=== PATIENT | male | born 1945 | race Caucasian/White ===

== ENCOUNTER 2021-02-02 02:58 | Inpatient (IN) | payer MEDICARE, SELFPAY ==
[2021-02-02] VITALS (15 sets, daily range): BP systolic 74–191; BP diastolic 49–125; PULSE 82–123; RESP 14–24; TEMP 36.4–36.7; O2SAT 97–101; BMI 27.4; BMI 28.4
--- NOTE | ~2021-02-02 | XR_ITS ---
EXAMINATION: XR CHEST CLINICAL INFORMATION: Shortness of breath COMPARISON: 08/13/2016 TECHNIQUE: Frontal view of the chest was obtained. FINDINGS: Lung volumes are symmetric. No focal consolidation is seen. No evidence of pneumothorax, pleural effusion, or pulmonary edema. Cardiac size is within normal limits. Calcification is present at the aortic arch. No acute osseous findings are seen. XR/XR chest 1V IMPRESSION: No acute cardiopulmonary findings.
--- NOTE | 2021-02-02 03:13 | ECG_ITS ---
Test Reason : HYPOTENSION Blood Pressure : / mmHG Vent. Rate : 083 BPM Atrial Rate : 065 BPM P-R Int : 000 ms QRS Dur : 102 ms QT Int : 426 ms P-R-T Axes : 000 046 -19 degrees QTc Int : 500 ms Atrial fibrillation Cannot rule out Inferior infarct , age undetermined Prolonged QT Abnormal ECG When compared with ECG of 02-FEB-2021 03:12, Minimal criteria for Inferior infarct are now Present Nonspecific T wave abnormality now evident in Inferior leads T wave amplitude has decreased in Lateral leads QT has lengthened Referred By: Melissa Chin Electronically Signed By:ANGEL LUIS ORTEGA
[2021-02-02] MEDS: Metoprolol Tartrate 5 MG/5 ML VIAL IVPUSH (03:25)
[2021-02-02 03:32] LABS: Basophils Absolute Auto 0.2 X10*3/uL (0.0-0.2); Eosinophils Absolute Auto 1.1 X10*3/uL (0.0-0.4); Eosinophils Percent Auto 7.3 % (0-4); Hematocrit 50.7 % (42-52); Hemoglobin 18.1 g/dl (14.0-18.0); Imm Gran Abs Auto 0.07 X10*3/uL (0.00-0.03); Imm Gran Pct Auto 0.5 % (0.0-0.4); Lymphocytes Percent Auto 20.5 % (20-40); MANUAL DIFF FLAG NO; Mean Corpuscular HGB Conc 35.7 g/dl (31.0-36.0); Mean Corpuscular Hemoglobin 31.3 pg (27.0-33.0); Mean Corpuscular Volume 87.7 fL (80-98); Mean Platelet Volume 10.2 fL (9.4-12.4); Monocytes Absolute Auto 1.2 X10*3/uL (0.1-1.2); Monocytes Percent Auto 8.4 % (2-11); Neutrophils Absolute Auto 9.2 X10*3/uL (2.0-8.3); Neutrophils Percent Auto 62.3 % (45-73); Platelet Count 249 X10*3/uL (160-400); Red Blood Count 5.78 X10*6/uL (4.60-5.80); Red Cell Distribution Width 12.2 % (11.0-16.0); White Blood Count 14.7 X10*3/uL (4.8-10.8)
[2021-02-02 03:36] LABS: Venous Blood Gas Refer to POC result
[2021-02-02 03:37] LABS: VBG HCO3 25 mmol/L (22-26); VBG pCO2 58 mmHg; VBG pH 7.25 (7.32-7.43); VBG pO2 66 mmHg
[2021-02-02 03:40] LABS: INTERNATIONAL NORM RATIO 1.1 (0.9-1.1); Prothrombin Time 12.1 SEC (9.9-13.0)
[2021-02-02 03:47] LABS: Alanine Aminotransferase 27 U/L (0-40); Albumin Level 4.8 g/dL (3.5-5.0); Alkaline Phosphatase 91 U/L (39-117); Anion Gap 18 (12-20); Aspartate Amino Transferase 37 U/L (5-37); Bilirubin Total 2.2 mg/dL (0.0-1.0); Blood Urea Nitrogen 7 mg/dL (9-16); Carbon Dioxide 24 mmol/L (22-29); Chloride 92 mmol/L (96-108); Creatinine Clr Calc Pharmacy 67.2; Estimated Glomerular Filt Rate > 60; Glucose Random 198 mg/dL (60-115); Potassium 4.2 mmol/L (3.3-5.1); Sodium 130 mmol/L (135-145); Total Protein 8.1 g/dL (6.5-8.0)
--- NOTE | 2021-02-02 03:47 | ED_ITS ---
HPI - SOB/Dyspnea General Chief Complaint: Dyspnea Stated Complaint: SOB X1WEEK WORSENING, RHONCI, FEVER Time Seen by Provider: 02/02/21 03:13 Source: patient Mode of arrival: EMS History of Present Illness HPI Narrative: 75-year-old male with history of CABG presents via EMS with 1 week of worsening shortness of breath that became acutely worsening this evening and denies any chest pain/palpitations, abdominal pain. Related Data Allergies Allergy/AdvReac Type Severity Reaction Status Date / Time Penicillins [PENICILLINS] Allergy Unknown RASH Verified 02/02/21 03:17 Review of Systems Review of Systems: Pertinent positives and negatives as stated in HPI 10 point review of systems is otherwise negative. [facility] Past Medical History Source: nursing notes reviewed Social History Social History Advance Directives: No Physical Exam Vital Signs: Vital Signs: Last Vital Signs Pulse 83 02/02/21 07:13 Resp 22 H 02/02/21 07:56 BP 102/69 02/02/21 05:05 Pulse Ox 99 02/02/21 07:13 Body Mass Index 27.4 VITAL SIGNS: Reviewed. GENERAL: Chronically ill, acute distress HEAD: Normocephalic/atraumatic EYES: PERRLA, EOMI OROPHARYNX: no oral lesions noted, posterior pharynx clear LUNGS: Respiratory distress, tachypnea, unable to speak in full sentences, expiratory wheeze with rales. SpO2<100> 100% non-rebreather CARDIOVASCULAR: Regular rate and rhythm without noted murmurs, no JVD or lower extremity edema. ABDOMEN: Soft, non-tender, non-distended with bowel sounds. MUSCULOSKELETAL: No tenderness, deformities, or effusions noted on gross in spection. EXTREMITIES: No cyanosis, clubbing or edema. SKIN: Inspection of the skin reveals no rashes, but diaphoretic NEUROLOGIC: Alert and oriented x 4. Strength and sensation to light touch were g rossly intact x 4. Course Course Course Narrative: 75-year-old male with acute respiratory distress although oxygenating well on 100% non-rebreather unable to speak in complete sentences and placed on BiPAP, given a Xopenex and provided 5 mg of Lopressor for atrial fibrillation RVR. Patient denies any respiratory issues previously and so somewhat of a mixed picture although preliminary bedside echo shows B-lines suggesting CHF exacerbation. Patient improved clinically and heart rate improved. Patient then became hypotensive but was mentating well and continuing to deny any chest pain. Although review of all investigations shows a leukocytosis this is felt to be stress response as there is no noted infiltrate on chest x-ray and the abdominal exam is benign and no urinary symptoms. The noted troponin rise thought to be secondary to flash pulmonary edema from atrial fibrillation with RVR leading to ischemia further exacerbated by hypotension. 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 Reevaluation(s) Reevaluation #1: I discussed the case with Dr. Sam who recommends no further IV fluids, keep BiPAP in place and admit. Time: 05:40 Reevaluation #2: I discussed the case with , the wash test checker who recommends that patient be given a trial off of the BiPAP and if he does well he can be admitted [place] [facility] Reevaluation #3: I communicated with Dr. Sam all of the updates and additional findings. MDM - SOB/Dyspnea Lab Data Result diagrams: 02/02/21 03:23 02/02/21 03:23 Labs: Lab Results 02/02/21 02/02/21 02/02/21 Range/Units 03:23 03:23 03:23 WBC 14.7 H (4.8-10.8) X10*3/uL RBC 5.78 (4.60-5.80) X10*6/uL Hgb 18.1 H (14.0-18.0) g/dl Hct 50.7 (42-52) % MCV 87.7 (80-98) fL MCH 31.3 (27.0-33.0) pg MCHC 35.7 (31.0-36.0) g/dl RDW 12.2 (11.0-16.0) % Plt Count 249 (160-400) X10*3/uL MPV 10.2 (9.4-12.4) fL Immature Gran % (Auto) 0.5 H (0.0-0.4) % Neut % (Auto) 62.3 (45-73) % Lymph % (Auto) 20.5 (20-40) % [place] % (Auto) 8.4 (2-11) % Eos % (Auto) 7.3 H (0-4) % Baso % (Auto) 1.0 (0-2) % Lymph # (Auto) 3.0 (1.2-4.9) X10*3/uL [place] # (Auto) 1.2 (0.1-1.2) X10*3/uL Eos # (Auto) 1.1 H (0.0-0.4) X10*3/uL Baso # (Auto) 0.2 (0.0-0.2) X10*3/uL Abs Immat Gran (auto) 0.07 H (0.00-0.03) X10*3/uL Absolute Neuts (auto) 9.2 H (2.0-8.3) X10*3/uL Absolute Nucleated RBC 0.000 (0.0-0.012) X10*3/uL Nucleated RBC % (auto) 0.0 (0.0-0.2) /100WBC PT 12.1 (9.9-13.0) SEC INR 1.1 (0.9-1.1) O2 Saturation % ABG pH at Pt Temp (7.35-7.45) ABG pCO2 at Pt Temp (32-45) mmHg ABG pO2 at Pt Temp (83-108) mmHg ABG HCO3 (22-26) mmol/L ABG Base Excess (Actual) mmol/L VBG pH (7.32-7.43) VBG pCO2 mmHg VBG pO2 mmHg VBG HCO3 (22-26) mmol/L VBG O2 Saturation % VBG Base Excess mmol/L Sodium 130 L (135-145) mmol/L Potassium 4.2 (3.3-5.1) mmol/L Chloride 92 L (96-108) mmol/L Carbon Dioxide 24 (22-29) mmol/L Anion Gap 18 (12-20) BUN 7 L (9-16) mg/dL Creatinine 0.98 (0.5-1.4) mg/dL Estim Creat Clear Calc 67.2 Estimated GFR > 60 Random Glucose 198 H (60-115) mg/dL Lactic Acid (0.5-2.0) mmol/L Lactic Acid Fup @ 2Hr (0.5-2.0) mmol/L Calcium 10.0 (8.4-10.2) mg/dL Magnesium 1.7 (1.6-2.6) mg/dL Total Bilirubin 2.2 H (0.0-1.0) mg/dL AST 37 (5-37) U/L ALT 27 (0-40) U/L Alkaline Phosphatase 91 (39-117) U/L Troponin I High Sens (<3.5-35.0) ng/L B-Natriuretic Peptide (<100) pg/mL Total Protein 8.1 H (6.5-8.0) g/dL Albumin 4.8 (3.5-5.0) g/dL COVID-19 (AUTUMN) (Negative) COVID-19 Clin Com 02/02/21 02/02/21 02/02/21 Range/Units 03:23 03:23 03:25 WBC (4.8-10.8) X10*3/uL RBC (4.60-5.80) X10*6/uL Hgb (14.0-18.0) g/dl Hct (42-52) % MCV (80-98) fL MCH (27.0-33.0) pg MCHC (31.0-36.0) g/dl RDW (11.0-16.0) % Plt Count (160-400) X10*3/uL MPV (9.4-12.4) fL Immature Gran % (Auto) (0.0-0.4) % Neut % (Auto) (45-73) % Lymph % (Auto) (20-40) % [place] % (Auto) (2-11) % Eos % (Auto) (0-4) % Baso % (Auto) (0-2) % Lymph # (Auto) (1.2-4.9) X10*3/uL [place] # (Auto) (0.1-1.2) X10*3/uL Eos # (Auto) (0.0-0.4) X10*3/uL Baso # (Auto) (0.0-0.2) X10*3/uL Abs Immat Gran (auto) (0.00-0.03) X10*3/uL Absolute Neuts (auto) (2.0-8.3) X10*3/uL Absolute Nucleated RBC (0.0-0.012) X10*3/uL Nucleated RBC % (auto) (0.0-0.2) /100WBC PT (9.9-13.0) SEC INR (0.9-1.1) O2 Saturation % ABG pH at Pt Temp (7.35-7.45) ABG pCO2 at Pt Temp (32-45) mmHg ABG pO2 at Pt Temp (83-108) mmHg ABG HCO3 (22-26) mmol/L ABG Base Excess (Actual) mmol/L VBG pH (7.32-7.43) VBG pCO2 mmHg VBG pO2 mmHg VBG HCO3 (22-26) mmol/L VBG O2 Saturation % VBG Base Excess mmol/L Sodium (135-145) mmol/L Potassium (3.3-5.1) mmol/L Chloride (96-108) mmol/L Carbon Dioxide (22-29) mmol/L Anion Gap (12-20) BUN (9-16) mg/dL Creatinine (0.5-1.4) mg/dL Estim Creat Clear Calc Estimated GFR Random Glucose (60-115) mg/dL Lactic Acid 3.3 H* (0.5-2.0) mmol/L Lactic Acid Fup @ 2Hr (0.5-2.0) mmol/L Calcium (8.4-10.2) mg/dL Magnesium (1.6-2.6) mg/dL Total Bilirubin (0.0-1.0) mg/dL AST (5-37) U/L ALT (0-40) U/L Alkaline Phosphatase (39-117) U/L Troponin I High Sens 116.8 H* (<3.5-35.0) ng/L B-Natriuretic Peptide 499 H (<100) pg/mL Total Protein (6.5-8.0) g/dL Albumin (3.5-5.0) g/dL COVID-19 (AUTUMN) Negative (Negative) COVID-19 Clin Com See Note 02/02/21 02/02/21 02/02/21 Range/Units 03:32 05:43 06:23 WBC (4.8-10.8) X10*3/uL RBC (4.60-5.80) X10*6/uL Hgb (14.0-18.0) g/dl Hct (42-52) % MCV (80-98) fL MCH (27.0-33.0) pg MCHC (31.0-36.0) g/dl RDW (11.0-16.0) % Plt Count (160-400) X10*3/uL MPV (9.4-12.4) fL Immature Gran % (Auto) (0.0-0.4) % Neut % (Auto) (45-73) % Lymph % (Auto) (20-40) % [place] % (Auto) (2-11) % Eos % (Auto) (0-4) % Baso % (Auto) (0-2) % Lymph # (Auto) (1.2-4.9) X10*3/uL [place] # (Auto) (0.1-1.2) X10*3/uL Eos # (Auto) (0.0-0.4) X10*3/uL Baso # (Auto) (0.0-0.2) X10*3/uL Abs Immat Gran (auto) (0.00-0.03) X10*3/uL Absolute Neuts (auto) (2.0-8.3) X10*3/uL Absolute Nucleated RBC (0.0-0.012) X10*3/uL Nucleated RBC % (auto) (0.0-0.2) /100WBC PT (9.9-13.0) SEC INR (0.9-1.1) O2 Saturation % ABG pH at Pt Temp (7.35-7.45) ABG pCO2 at Pt Temp (32-45) mmHg ABG pO2 at Pt Temp (83-108) mmHg ABG HCO3 (22-26) mmol/L ABG Base Excess (Actual) mmol/L VBG pH 7.25 L (7.32-7.43) VBG pCO2 58 mmHg VBG pO2 66 mmHg VBG HCO3 25 (22-26) mmol/L VBG O2 Saturation 86.0 % VBG Base Excess -3.0 mmol/L Sodium (135-145) mmol/L Potassium (3.3-5.1) mmol/L Chloride (96-108) mmol/L Carbon Dioxide (22-29) mmol/L Anion Gap (12-20) BUN (9-16) mg/dL Creatinine (0.5-1.4) mg/dL Estim Creat Clear Calc Estimated GFR Random Glucose (60-115) mg/dL Lactic Acid (0.5-2.0) mmol/L Lactic Acid Fup @ 2Hr 3.5 H* (0.5-2.0) mmol/L Calcium (8.4-10.2) mg/dL Magnesium (1.6-2.6) mg/dL Total Bilirubin (0.0-1.0) mg/dL AST (5-37) U/L ALT (0-40) U/L Alkaline Phosphatase (39-117) U/L Troponin I High Sens 1379.6 H* D (<3.5-35.0) ng/L B-Natriuretic Peptide (<100) pg/mL Total Protein (6.5-8.0) g/dL Albumin (3.5-5.0) g/dL COVID-19 (AUTUMN) (Negative) COVID-19 Clin Com 02/02/21 Range/Units 06:44 WBC (4.8-10.8) X10*3/uL RBC (4.60-5.80) X10*6/uL Hgb (14.0-18.0) g/dl Hct (42-52) % MCV (80-98) fL MCH (27.0-33.0) pg MCHC (31.0-36.0) g/dl RDW (11.0-16.0) % Plt Count (160-400) X10*3/uL MPV (9.4-12.4) fL Immature Gran % (Auto) (0.0-0.4) % Neut % (Auto) (45-73) % Lymph % (Auto) (20-40) % [place] % (Auto) (2-11) % Eos % (Auto) (0-4) % Baso % (Auto) (0-2) % Lymph # (Auto) (1.2-4.9) X10*3/uL [place] # (Auto) (0.1-1.2) X10*3/uL Eos # (Auto) (0.0-0.4) X10*3/uL Baso # (Auto) (0.0-0.2) X10*3/uL Abs Immat Gran (auto) (0.00-0.03) X10*3/uL Absolute Neuts (auto) (2.0-8.3) X10*3/uL Absolute Nucleated RBC (0.0-0.012) X10*3/uL Nucleated RBC % (auto) (0.0-0.2) /100WBC PT (9.9-13.0) SEC INR (0.9-1.1) O2 Saturation 100.0 % ABG pH at Pt Temp 7.34 L (7.35-7.45) ABG pCO2 at Pt Temp 37 (32-45) mmHg ABG pO2 at Pt Temp 185 H (83-108) mmHg ABG HCO3 20 L (22-26) mmol/L ABG Base Excess (Actual) -4.1 mmol/L VBG pH (7.32-7.43) VBG pCO2 mmHg VBG pO2 mmHg VBG HCO3 (22-26) mmol/L VBG O2 Saturation % VBG Base Excess mmol/L Sodium (135-145) mmol/L Potassium (3.3-5.1) mmol/L Chloride (96-108) mmol/L Carbon Dioxide (22-29) mmol/L Anion Gap (12-20) BUN (9-16) mg/dL Creatinine (0.5-1.4) mg/dL Estim Creat Clear Calc Estimated GFR Random Glucose (60-115) mg/dL Lactic Acid (0.5-2.0) mmol/L Lactic Acid Fup @ 2Hr (0.5-2.0) mmol/L Calcium (8.4-10.2) mg/dL Magnesium (1.6-2.6) mg/dL Total Bilirubin (0.0-1.0) mg/dL AST (5-37) U/L ALT (0-40) U/L Alkaline Phosphatase (39-117) U/L Troponin I High Sens (<3.5-35.0) ng/L B-Natriuretic Peptide (<100) pg/mL Total Protein (6.5-8.0) g/dL Albumin (3.5-5.0) g/dL COVID-19 (AUTUMN) (Negative) COVID-19 Clin Com ECG Data Attestation: I personally reviewed and interpreted this ECG as follows: Prior ECG tracings: not available for review Interpretation: Atrial fibrillation with RVR, HR-112, no STEMI, QRS/QTC are within normal limits. Discharge Plan Discharge Clinical Impression: Acute respiratory distress, CHF exacerbation, Atrial fibrillation with RVR Patient Disposition: Admitted As Inpatient
[2021-02-02 03:52] LABS: COVID-19 Test Negative (Negative); IDNOW Serial# 08D9AD1C
[2021-02-02 03:55] LABS: Lactic Acid 3.3 mmol/L (0.5-2.0)
[2021-02-02] MEDS: cefTRIAXone sodium 1 GM in 0.9 % Sodium Chloride 50 ML IV (04:02)
--- NOTE | 2021-02-02 04:36 | ECG_ITS ---
Test Reason : SHORTNESS OF BREATH Blood Pressure : / mmHG Vent. Rate : 112 BPM Atrial Rate : 125 BPM P-R Int : 000 ms QRS Dur : 098 ms QT Int : 292 ms P-R-T Axes : 000 044 054 degrees QTc Int : 398 ms Poor data quality, interpretation may be adversely affected Atrial fibrillation with rapid ventricular response Possible Anterior infarct , age undetermined Abnormal ECG When compared with ECG of 13-AUG-2016 08:36, Atrial fibrillation has replaced Sinus rhythm Borderline criteria for Anterior infarct are now Present Referred By: Melissa Chin Electronically Signed By:ANGEL LUIS ORTEGA
[2021-02-02] MEDS: 0.9 % Sodium Chloride 1,000 ML 999 ML IV (04:43)
[2021-02-02 04:45] LABS: B Type Natriuretic Peptide 499 pg/mL (<100)
[2021-02-02 04:47] LABS: Magnesium 1.7 mg/dL (1.6-2.6)
--- NOTE | 2021-02-02 04:47 | PC.NURSE ---
PT has low BP. Mentation is good, no confusion and speaking in clear sentences. PT does admit to feeling dizzy at times, but no complaints of chest pain or difficulty breathing.
[2021-02-02 04:56] LABS: Troponin-I High Sensitivity 116.8 ng/L (<3.5-35.0)
--- NOTE | 2021-02-02 05:11 | PC.NURSE ---
PT receiving 1L of NS fluid. BP is increasing. Lung sounds have bilateral rhonchi on exhalation.
[2021-02-02 05:31] LABS: Reflex Lactate? Lactic Acid Added
[2021-02-02 06:05] LABS: ~Lactic Acid-LAB USE ONLY 3.5 mmol/L (0.5-2.0)
[2021-02-02 06:48] LABS: ABG Refer to POC result
[2021-02-02 06:49] LABS: ABG Base Excess -4.1 mmol/L; ABG HCO3 20 mmol/L (22-26); ABG pCO2 37 mmHg (32-45); ABG pH 7.34 (7.35-7.45); ABG pO2 185 mmHg (83-108)
[2021-02-02 07:23] LABS: Troponin-I High Sensitivity 1379.6 ng/L (<3.5-35.0)
--- NOTE | 2021-02-02 07:25 | ECG_ITS ---
Test Reason : SOB Blood Pressure : / mmHG Vent. Rate : 088 BPM Atrial Rate : 127 BPM P-R Int : 000 ms QRS Dur : 096 ms QT Int : 396 ms P-R-T Axes : 000 037 243 degrees QTc Int : 479 ms Atrial fibrillation Cannot rule out Anterior infarct , age undetermined Abnormal ECG When compared with ECG of 02-FEB-2021 04:28, T wave inversion now evident in Lateral leads Referred By: Melissa Chin Electronically Signed By:ANGEL LUIS ORTEGA
[2021-02-02 07:47] LABS: Reflex Lactate? 2 Y
--- NOTE | 2021-02-02 07:59 | P.PNCC_ITS ---
Critical Care Event Note Summary Date of Service: 02/02/21 Code activated: No Narrative: 75-year-old gentleman been admitted with 1 week history of progressive dyspnea with no chest pain. On initial ER evaluation hypertensive with systolic blood pressure up to 190's, tachycardia, AFib. Initial troponin of 116, BNP 500, lactate 3.3, venous blood gas with pH of 7.25/venous pCO2 of 58. EKG with no ST changes. Patient placed on BiPAP and administered 5 mgof Lopressor with improvement in his heart rate, but development of hypotension with systolic blood pressure in 70s. After 1 L of IV fluids, blood pressure stabilized at systolic of 100-110 range. Follow-up lactate in 2 hours of 3.5. Follow-up troponin in 4 hours of 1379, ABG 7.34/37/185. EKG with flipped T- waves in lateral leads. No chest pain, no dyspnea. Normotensive, normal pulse. Alert and oriented and comfortable on exam. No evidence of CO2 retention. Chest x-ray with no evidence of pulmonary edema. No evidence of septic etiology. Concern for AFib with RVR induced cardiac ischemia with resultant metabolic acidosis and/or developing ID. Agree with p.o. aspirin and taking of BiPAP. Consider urgent echocardiogram, anticoagulation, further cardiac evaluation, and admission to telemetry lucio for monitoring and ruling out developing ID. At this time patient does not require intensive care level of service, please notify for re-evaluation if patient's condition changes. Critical Care Time (minutes): 30
[2021-02-02] MEDS: Aspirin 81 MG TAB.CHEW 324 MG PO (08:05)
[2021-02-02 08:33] LABS: ~Lactic Acid-LAB USE ONLY 2.2 mmol/L (0.5-2.0)
--- NOTE | 2021-02-02 09:09 | PHA.MEDREC ---
Pharmacy Consult ? Medication Reconciliation Pharmacy has completed the medication reconciliation. Thanks Greg
--- NOTE | 2021-02-02 10:25 | PC.NURSE ---
report taken from Reginaldo/Kurtis RN , pt was on BiPap when this RN arrived, he has since been taken off it and is now on O2 via NC. Pt reports no complaints at this time, he denies pain and is aware of plan to be admitted to the hospital.
--- NOTE | 2021-02-02 11:12 | PM.IMHP ---
History of Present Illness Date of Service: 02/02/21 <BRIDGER Cardoza - Last Filed: 02/02/21 13:27> Chief Complaint: Shortness of breath <BRIDGER Cardoza Last Filed: 02/02/21 13:27> This is a 75 year male presented to the emergency department complaints of shortness of breath. Past week he is complaints orthopnea and dyspnea on exertion. For the past several days he has been having difficulty sleeping. He has an associated dry cough. He denies any associated fever chills or recent contacts. He presented to the emergency department with increasing shortness of breath and feeling that he could not breathe. Workup was significant for troponin of 116 BNP of 499. Patient was also noted to be in atrial fibrillation with rapid ventricular response. He received a dose of IV Lopressor. Subsequently patient's respiratory failure became worse and he was placed on BiPAP. He received IV ceftriaxone, Xopenex. Heart rate was also noted to decrease into the 70s. Repeat troponin increased to 1379. Patient denies chest pain or palpitations. He was evaluated by the welder fitter apprentice but at that point his blood pressure was beginning to improve and he was not deemed to be a candidate for ICU level of care. Patient was able to be weaned off of BiPAP, blood pressure currently stable and therefore will be admitted to the medical floor for further management. Family history Mother has a history stroke Brother has a history of PR Social history Patient resides with his who is his healthcare proxy He has a history of tobacco use Denies the use of drugs or alcohol <BRIDGER Cardoza - Last Filed: 02/02/21 13:27> Review of Systems Review of Systems: Yes all other systems are reviewed and are negative <BRIDGER Cardoza Last Filed: 02/02/21 13:27> Constitutional: Constitutional: Denies chills and Denies fever(s) <BRIDGER Cardoza Last Filed: 02/02/21 13:27> Cardiovascular: Cardiovascular: Denies chest pain <BRIDGER Cardoza Last Filed: 02/02/21 13:27> Gastrointestinal: Gastrointestinal: Denies abdominal pain <BRIDGER Cardoza Last Filed: 02/02/21 13:27> [facility] Medical History: Medical History (Updated 02/02/21 @ 11:17 by BRIDGER Cardoza) Atrial fibrillation CAD (coronary artery disease) Hyperlipidemia Hypertension <BRIDGER Cardoza - Last Filed: 02/02/21 13:27> Family History: Family History (Updated 02/02/21 @ 11:17 by BRIDGER Cardoza) Other Heart disease <BRIDGER Cardoza - Last Filed: 02/02/21 13:27> Social History: Social History Patient Tobacco Use Status: Former Tobacco user Use of substances other than those prescribed or required for medical reasons: No Advance Directives: No <BRIDGER Cardoza - Last Filed: 02/02/21 13:27> Meds Allergies/Adverse reactions: Allergies Allergy/AdvReac Type Severity Reaction Status Date / Time Penicillins [PENICILLINS] Allergy Unknown RASH Verified 02/02/21 03:17 <BRIDGER Cardoza - Last Filed: 02/02/21 13:27> Active Medications: Current Medications Generic Name Dose Route Start Last Admin Trade Name Freq PRN Reason Stop Dose Admin Pharmacy Consult 1 each 02/02/21 08:38 Consult Rx Perform Med Rec MISCELLANE ONCE PRN Consult order <BRIDGER Cardoza - Last Filed: 02/02/21 13:27> Home medications: Home Medications Medication Instructions Recorded Confirmed Last Taken Type albuterol sulfate 90 mcg/actuation 2 puff PO QID PRN 02/02/21 02/02/21 02/01/21 History aerosol inhaler ascorbic acid (vitamin C) 500 mg 500 mg PO DAILY@1000 02/02/21 02/02/21 02/01/21 History tablet (Vitamin C) aspirin 81 mg tablet,delayed 81 mg PO DAILY@219902/02/21 02/02/21 02/01/21 History release atorvastatin 80 mg tablet 80 mg PO DAILY@219902/02/21 02/02/21 02/01/21 History carvedilol 12.5 mg tablet 12.5 mg PO BID@1000,219902/02/21 02/02/21 02/01/21 History lisinopril 30 mg tablet 30 mg PO DAILY@2200 02/02/21 02/02/21 02/01/21 History multivitamin 1 tab PO DAILY@1000 02/02/21 02/02/21 02/01/21 History <BRIDGER Cardoza - Last Filed: 02/02/21 13:27> Physical Exam Vital Signs and Narrative: Vital Signs: Last Vital Signs Pulse 83 02/02/21 07:13 Resp 22 H 02/02/21 07:56 BP 102/69 02/02/21 05:05 Pulse Ox 99 02/02/21 07:13 Body Mass Index 27.4 <BRIDGER Cardoza - Last Filed: 02/02/21 13:27> Const: Nutritional Appearance: well nourished <BRIDGER Cardoza - Last Filed: 02/02/21 13:27> Orientation/consciousness: patient oriented x3 <BRIDGER Cardoza - Last Filed: 02/02/21 13:27> HENMT: Head: Yes normocephalic and Yes atraumatic <BRIDGER Cardoza - Last Filed: 02/02/21 13:27> Eyes: Sclerae: sclerae normal <BRIDGER Cardoza - Last Filed: 02/02/21 13:27> Resp: Other: Bilateral wheezing <BRIDGER Cardoza - Last Filed: 02/02/21 13:27> Effort & Inspection: no respiratory distress <BRIDGER Cardoza - Last Filed: 02/02/21 13:27> Cardio: Other: Irregular rhythm, rate controlled <BRIDGER Cardoza Last Filed: 02/02/21 13:27> GI: Palpation (GI): Soft to palpation and nontender <BRIDGER Cardoza - Last Filed: 02/02/21 13:27> Neuro: General: patient oriented x3 <BRIDGER Cardoza - Last Filed: 02/02/21 13:27> Cranial nerves: Yes CN's II-XII intact bilaterally and Yes Bilaterally intact EOM present <BRIDGER Cardoza Last Filed: 02/02/21 13:27> Extrem: Other: No significant leg edema <BRIDGER Cardoza - Last Filed: 02/02/21 13:27> Results Labs CBC and Chem 7: : 02/02/21 03:23 02/02/21 03:23 <BRIDGER Cardoza - Last Filed: 02/02/21 13:27> Labs: Laboratory Results - last 24 hr 02/02/21 02/02/21 02/02/21 03:23 03:23 03:23 MCV 87.7 MCH 31.3 MCHC 35.7 RDW 12.2 Plt Count 249 MPV 10.2 Immature Gran % (Auto) 0.5 H Neut % (Auto) 62.3 Lymph % (Auto) 20.5 [place] % (Auto) 8.4 Eos % (Auto) 7.3 H Baso % (Auto) 1.0 Lymph # (Auto) 3.0 [place] # (Auto) 1.2 Eos # (Auto) 1.1 H Baso # (Auto) 0.2 Abs Immat Gran (auto) 0.07 H Absolute Neuts (auto) 9.2 H Absolute Nucleated RBC 0.000 Nucleated RBC % (auto) 0.0 PT 12.1 INR 1.1 O2 Saturation ABG pH at Pt Temp ABG pCO2 at Pt Temp ABG pO2 at Pt Temp ABG HCO3 ABG Base Excess (Actual) VBG pH VBG pCO2 VBG pO2 VBG HCO3 VBG O2 Saturation VBG Base Excess Anion Gap 18 Estim Creat Clear Calc 67.2 Estimated GFR > 60 Random Glucose 198 H Lactic Acid Lactic Acid Fup @ 2Hr Lactic Acid Fup @ 4Hr Calcium 10.0 Magnesium 1.7 Total Bilirubin 2.2 H AST 37 ALT 27 Alkaline Phosphatase 91 Troponin I High Sens B-Natriuretic Peptide Total Protein 8.1 H Albumin 4.8 COVID-19 (AUTUMN) COVID-19 Clin Com 02/02/21 02/02/21 02/02/21 03:23 03:23 03:25 MCV MCH MCHC RDW Plt Count MPV Immature Gran % (Auto) Neut % (Auto) Lymph % (Auto) [place] % (Auto) Eos % (Auto) Baso % (Auto) Lymph # (Auto) [place] # (Auto) Eos # (Auto) Baso # (Auto) Abs Immat Gran (auto) Absolute Neuts (auto) Absolute Nucleated RBC Nucleated RBC % (auto) PT INR O2 Saturation ABG pH at Pt Temp ABG pCO2 at Pt Temp ABG pO2 at Pt Temp ABG HCO3 ABG Base Excess (Actual) VBG pH VBG pCO2 VBG pO2 VBG HCO3 VBG O2 Saturation VBG Base Excess Anion Gap Estim Creat Clear Calc Estimated GFR Random Glucose Lactic Acid 3.3 H* Lactic Acid Fup @ 2Hr Lactic Acid Fup @ 4Hr Calcium Magnesium Total Bilirubin AST ALT Alkaline Phosphatase Troponin I High Sens 116.8 H* B-Natriuretic Peptide 499 H Total Protein Albumin COVID-19 (AUTUMN) Negative COVID-19 Clin Com See Note 02/02/21 02/02/21 02/02/21 03:32 05:43 06:23 MCV MCH MCHC RDW Plt Count MPV Immature Gran % (Auto) Neut % (Auto) Lymph % (Auto) [place] % (Auto) Eos % (Auto) Baso % (Auto) Lymph # (Auto) [place] # (Auto) Eos # (Auto) Baso # (Auto) Abs Immat Gran (auto) Absolute Neuts (auto) Absolute Nucleated RBC Nucleated RBC % (auto) PT INR O2 Saturation ABG pH at Pt Temp ABG pCO2 at Pt Temp ABG pO2 at Pt Temp ABG HCO3 ABG Base Excess (Actual) VBG pH 7.25 L VBG pCO2 58 VBG pO2 66 VBG HCO3 25 VBG O2 Saturation 86.0 VBG Base Excess -3.0 Anion Gap Estim Creat Clear Calc Estimated GFR Random Glucose Lactic Acid Lactic Acid Fup @ 2Hr 3.5 H* Lactic Acid Fup @ 4Hr Calcium Magnesium Total Bilirubin AST ALT Alkaline Phosphatase Troponin I High Sens 1379.6 H* D B-Natriuretic Peptide Total Protein Albumin COVID-19 (AUTUMN) COVID-19 Clin Com 02/02/21 02/02/21 06:44 08:08 MCV MCH MCHC RDW Plt Count MPV Immature Gran % (Auto) Neut % (Auto) Lymph % (Auto) [place] % (Auto) Eos % (Auto) Baso % (Auto) Lymph # (Auto) [place] # (Auto) Eos # (Auto) Baso # (Auto) Abs Immat Gran (auto) Absolute Neuts (auto) Absolute Nucleated RBC Nucleated RBC % (auto) PT INR O2 Saturation 100.0 ABG pH at Pt Temp 7.34 L ABG pCO2 at Pt Temp 37 ABG pO2 at Pt Temp 185 H ABG HCO3 20 L ABG Base Excess (Actual) -4.1 VBG pH VBG pCO2 VBG pO2 VBG HCO3 VBG O2 Saturation VBG Base Excess Anion Gap Estim Creat Clear Calc Estimated GFR Random Glucose Lactic Acid Lactic Acid Fup @ 2Hr Lactic Acid Fup @ 4Hr 2.2 H* Calcium Magnesium Total Bilirubin AST ALT Alkaline Phosphatase Troponin I High Sens B-Natriuretic Peptide Total Protein Albumin COVID-19 (AUTUMN) COVID-19 Clin Com <BRIDGER Cardoza - Last Filed: 02/02/21 13:27> Imaging Radiologist's Impressions: Impressions Chest X-Ray 02/02/21 03:14 IMPRESSION: No acute cardiopulmonary findings. <BRIDGER Cardoza - Last Filed: 02/02/21 13:27> Assessment and Plan (1) Atrial fibrillation with RVR: Status: Acute <BRIDGER Cardoza - Last Filed: 02/02/21 13:27> This is a 75-year-old male with a history of atrial fibrillation not on anticoagulation, hypertension, hyperlipidemia, CAD status post stent placement who presents to the emergency department with 1 week of increasing dyspnea found to be in atrial fibrillation with rapid ventricular response and respiratory failure requiring BiPAP Acute respiratory failure Initially requiring BiPAP, now on nasal cannula Secondary to underlying CHF likely precipitated by atrial fibrillation with rapid ventricular response AFib RVR Heart rate improved h/o afib, patient has declined chronic anticoagulation in the past Echocardiogram Cardiology consult NSTEMI Denies chest pain T wave inversion on EKG May be secondary to stress related to AFib with RVR and respiratory failure Cardiology evaluation Echocardiogram Continue aspirin, statin Start AC with heprin avoid BB Acute CHF Echo to assess LVEF Cardiology evaluation Lactic acidosis Likely secondary to hypotension related to medication from treatment of AFib No evidence of sepsis Leukocytosis Likely reactive Follow CBC Hyponatremia, mild Follow- BMP DVT prophylaxis-mechanical device Code status-full code Healthcare proxy- Attending physician-Dr. Perez <BRIDGER Cardoza - Last Filed: 02/02/21 13:27> This is a 75-year-old male with a history of atrial fibrillation not on anticoagulation, hypertension, hyperlipidemia, CAD status post stent placement who presents to the emergency department with 1 week of increasing dyspnea found to be in atrial fibrillation with rapid ventricular response and respiratory failure requiring BiPAP Acute respiratory failure Initially requiring BiPAP, now on nasal cannula Secondary to underlying CHF likely precipitated by atrial fibrillation with rapid ventricular response AFib RVR Heart rate improved h/o afib, patient has declined chronic anticoagulation in the past Echocardiogram Cardiology consult NSTEMI Denies chest pain T wave inversion on EKG May be secondary to stress related to AFib with RVR and respiratory failure Cardiology evaluation Echocardiogram Continue aspirin, statin Start AC with heprin avoid BB Acute CHF Echo to assess LVEF Cardiology evaluation Lactic acidosis Likely secondary to hypotension related to medication from treatment of AFib No evidence of sepsis Leukocytosis Likely reactive Follow CBC Hyponatremia, mild Follow- BMP DVT prophylaxis-mechanical device Code status-full code Healthcare proxy- Attending physician-Dr. Perez Attending Attestation: Patient seen and examined independently and I was present during ramirez portion of E/M service. Agree with BRIDGER Chavez's history, physical, assessment, and plan. 75 yo M presenting with respiratory symptoms likely secondary to acute CHF and A. Fib with RVR. Appeared to be in CHF in the ED with rapid a fib. BP dropped post IV metoprolol but rebounded and now normalized. HR controlled. Also has elevation in Trop-I. Will need diuresis and iv heparin. May ultimately need cardiac cath. D/w Dr. Sam -- AVOID BB and Cardizem. If HR increased, will dig load. <Vinny Perez MD - Last Filed: 02/02/21 13:36> Quality Stroke Does the patient have a stroke diagnosis?: No <BRIDGER Cardoza - Last Filed: 02/02/21 13:27> VTE Prior VTE?: No <BRIDGER Cardoza - Last Filed: 02/02/21 13:27> VTE Risk Level:: Medical - moderate - high <BRIDGER Cardoza - Last Filed: 02/02/21 13:27> VTE Device Contraindication: N/A - Device Ordered <BRIDGER Cardoza - Last Filed: 02/02/21 13:27> VTE Drug Contraindication: N/A - Med Ordered <BRIDGER Cardoza - Last Filed: 02/02/21 13:27>
--- NOTE | 2021-02-02 13:02 | CA_ITS ---
Transthoracic Echocardiogram Patient (Last, First, Middle): Kevin Monaco, Gender: Male Date of : 1945 Age: 75 Procedure Date: 02/02/2021 Procedure Type: Transthoracic Echocardiogram Location: ER Height: 177.8 cm Weight: 86.64 kg BSA: 2.05 m2 Heart Rate: bpm BP: 124 / 82 mmHg Conference Services Manager: LUTHER Referring MD: Cassandra SPARKS Symptoms: CHF Study Quality: Technically Difficult/Contrast Conclusions: - The left ventricular systolic function is moderate to severely decreased. The visually estimated ejection fraction is between 25-30%. - The entire apex, the mid anterior, mid inferior, mid anterolateral, mid inferoseptal, mid anteroseptal, and mid inferolateral segments are akinetic. 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 Findings Procedure Information Contrast agent, definity, is being given per protocol without apparent complications. Left Ventricle Normal left ventricular cavity size. There is mildly increased left ventricular wall thickness. The left ventricular systolic function is moderate to severely decreased. The visually estimated ejection fraction is between 25-30%. There is evidence of regional wall motion abnormalities. Diastolic function is indeterminate on the basis of available data. Wall Motion Rest Echo Findings The entire apex, the mid anterior, mid inferior, mid anterolateral, mid inferoseptal, mid anteroseptal, and mid inferolateral segments are akinetic. Right Ventricle Normal right ventricular cavity size and systolic function. Atria The left atrium is normal in size. The right atrium is mildly dilated. Aortic Valve There is a normal trileaflet aortic valve. There is mild calcification of the aortic valve. There is no aortic valve stenosis. There is no aortic valve regurgitation. Mitral Valve There is moderate mitral annular calcification. There is mild mitral valve regurgitation. There is no mitral valve stenosis. Pulmonic Valve The pulmonic valve is likely normal. Tricuspid Valve Normal tricuspid valve structure and function. There is trace tricuspid valve regurgitation. Tricuspid regurgitation envelope is inadequate for calculation of right ventricular systolic pressure. Normal right atrial pressure. Great Vessels The pulmonary artery was not well visualized. There is mild dilatation of the ascending aorta. Venous The inferior vena cava is normal in size and collapses greater than 50% with inspiration. Pericardium/Pleural There is no evidence of pericardial effusion. Prior Study Comparison No prior study available for comparison. Measurements 2D Linear Measurements IVSd: 1.06 0.6-0.9/0.6-1.0 cm LVIDd: 4.29 3.9-5.3/4.2-5.9 cm LVIDd Index: 2.09 2.4-3.2/2.2-3.1 cm/m2 LVIDs: 3.36 2.0-3.6 cm LVPWd: 1.14 0.7-1.1 cm Ao Root: 3.40 2.1-3.5 cm LA Diam: 3.90 2.7-3.8/3.0-4.0 cm LAIDs Index: 1.90 1.5-2.3 cm/m2 LV Mass: 202.18 67-162/88-224 g LV Mass Index: 98.63 43-95/49-115 g/m2 LVOT Diam: 2.00 3.0+(-)1.3 cm 2D Systolic Function EF 4C: 42.50 >55% EF 2C: 37.20 >55% Aortic Valve AoV Pk Ari: 0.87 AoV Mn Ari: 0.54 AoV VTI: 0.14 AoV Pk Grad: 3.00 Aov Mn Grad: 1.00 ZOHRA Cont.VTI: 2.54 LVOT LVOT Pk Ari: 0.69 LVOT Mn Ari: 0.45 LVOT VTI: 0.11 LVOT Pk Grad: 2.00 LVOT Mn Grad: 1.00 LVOT Diam: 2.00 LVOT Area: 3.14 Right Ventricle TAPSE (mm): 1.88 TVS' Ari: 10.20 Tricuspid Valve RA Press: 3.00 Great Vessels Aorta Ao Root-2D: 3.40 2.0-3.7 cm Ao Asc: 3.60 2.1-3.4 cm Updated in Other Vendor System with Status of Final Mert Sam MD electronically signed on 02/02/2021 11:34:24 PM with status of Final
[2021-02-02 14:39] LABS: INTERNATIONAL NORM RATIO 1.3 (0.9-1.1); Prothrombin Time 14.9 SEC (9.9-13.0)
[2021-02-02 14:41] LABS: PTT Heparin Drip 26.3 SEC (53-77.9)
[2021-02-02] MEDS: Heparin Sodium,Porcine 5,000 UNIT/ML VIAL 4000 UNIT IVPUSH (15:01)
[2021-02-02] MEDS: Heparin Sodium,Porcine/1/2NS 25,000 UNIT/250 ML IV.SOLN 10 UNIT IVCONT (15:05)
--- NOTE | 2021-02-02 15:12 | PC.NURSE ---
Heparin gtt started at 1505 at 10ml/hsr
[2021-02-02] MEDS: 0.9 % Sodium Chloride Flush 3 ML SYRINGE IVFLUSH ×2 (15:47→20:18)
--- NOTE | 2021-02-02 16:18 | MHC.CM.PN ---
CM met with admitted patient, with transfer pending to room 273. IMM reviewed and signed per protocol 02/02/2021@1605. HCP not on file. Copy requested. Pt unsure if they have copy. Educated about completing one now, pt refused. States he wants this here to review it. Contact card given. Pt lives with his , Shahla Johnson ([phone]). Uses a can and walker, has no home services. Was in [employer]. Uses no veterans services. D/C plan is home without services. P may need resp evaluation while hospitalized pending hospital course. Transportation provided by . Pt tells CM is plans to fly to [place] in 2 weeks to visit family. CM to follow for d/c needs.
--- NOTE | 2021-02-02 17:00 | P.CONCA_ITS ---
History of Present Illness History of Present Illness Date of Service: 02/02/21 Requesting physician: Cassandra Moore Chief complaint: CHF, NSTEMI Narrative: 75-year-old gentleman with background history of coronary artery disease with reported stent to left circumflex artery in the past who is presenting with 1 week history of shortness of breath and orthopnea. Clinically was in heart failure on admission and was given diuretics and had BiPAP placed. He was in AFib with RVR and was given IV Lopressor for which led to hypotension requiring IV fluid bolus. He has improved on BiPAP significantly. He ruled in for NSTEMI. EKG showing lateral T-wave inversions. He said when he had previous NM he had chest pressure but he did not have any chest pressure this time. He is short of breath and wheezing. He also has a peripheral vascular disease and is describing right more than left SFA stenosis and was being planned to have PCI to the SFA. [facility] Past Medical History Medical History (Updated 02/02/21 @ 17:07 by Mert Sam MD) Atrial fibrillation CAD (coronary artery disease) Hyperlipidemia Hypertension Family History Family History (Updated 02/02/21 @ 11:17 by BRIDGER Cardoza) Other Heart disease Social History Social History Patient Tobacco Use Status: Former Tobacco user service: Yes Current occupational status: retired Meds Allergies Allergy/AdvReac Type Severity Reaction Status Date / Time Penicillins [PENICILLINS] Allergy Unknown RASH Verified 02/02/21 03:17 Active Medications: Current Medications Generic Name Dose Route Start Last Admin Trade Name Freq PRN Reason Stop Dose Admin Acetaminophen 650 mg 02/02/21 13:02 Acetaminophen 325 Mg Tablet PO Q6H PRN Pain, Mild (Pain Scale 1-3) Albuterol Sulfate 2 puff 02/02/21 13:02 Albuterol Sulfate 90 Mcg 8 Gm Inhaler INHALE QID PRN wheezing Ascorbic Acid 500 mg 02/03/21 10:00 Ascorbic Acid 500 Mg Tablet PO DAILY@1000 [facility] Aspirin 81 mg 02/02/21 22:00 Aspirin Enteric Coated 81 Mg Tablet. PO DAILY@2200 [facility] Atorvastatin Calcium 80 mg 02/02/21 22:00 Atorvastatin Calcium 80 Mg Tablet PO DAILY@2200 [facility] Docusate Sodium 100 mg 02/02/21 13:02 Docusate Sodium 100 Mg Capsule PO DAILY PRN Constipation Furosemide 40 mg 02/02/21 18:00 Furosemide 40 Mg/4 Ml Vial IVPUSH BID@0900,1800 [facility] Protocol Heparin Sodium (Porcine) 3,500 unit 02/02/21 13:16 Heparin Sodium,Porcine 5,000 Unit/Ml Vial 40 unit/kg (3500 unit) IVPUSH PROTOCOL BOLUS PRN 40 unit/kg - Heparin Protocol Protocol Heparin Sodium (Porcine) 6,900 unit 02/02/21 13:16 Heparin Sodium,Porcine 5,000 Unit/Ml Vial 80 unit/kg (6900 unit) IVPUSH PROTOCOL BOLUS PRN 80 unit/kg - Heparin Protocol Protocol Heparin Sodium/Sodium Chloride 25,000 unit in 250 mls @ 0 mls/hr 02/02/21 13:30 02/02/21 15:05 IVCONT 11.53 units/kg/hr .Q0M [facility] 10 mls/hr Administration Protocol Per Protocol Ondansetron HCl 4 mg 02/02/21 13:02 Ondansetron Hcl 4 Mg/2 Ml Vial IVPUSH Q8H PRN Nausea and Vomiting Pharmacy Consult 1 each 02/02/21 08:38 Consult Rx Perform Med Rec MISCELLANE ONCE PRN Consult order Sodium Chloride 3 ml 02/02/21 16:00 02/02/21 15:47 0.9 % Sodium Chloride Flush 3 Ml Syringe IVFLUSH 3 ml QSHIFT [facility] Administration Home Medications Medication Instructions Recorded Confirmed Last Taken Type albuterol sulfate 90 mcg/actuation 2 puff PO QID PRN 02/02/21 02/02/21 02/01/21 History aerosol inhaler ascorbic acid (vitamin C) 500 mg 500 mg PO DAILY@1000 02/02/21 02/02/21 02/01/21 History tablet (Vitamin C) aspirin 81 mg tablet,delayed 81 mg PO DAILY@219902/02/21 02/02/21 02/01/21 History release atorvastatin 80 mg tablet 80 mg PO DAILY@219902/02/21 02/02/21 02/01/21 History carvedilol 12.5 mg tablet 12.5 mg PO BID@1000,219902/02/21 02/02/21 02/01/21 History lisinopril 30 mg tablet 30 mg PO DAILY@2200 02/02/21 02/02/21 02/01/21 History multivitamin 1 tab PO DAILY@1000 02/02/21 02/02/21 02/01/21 History Physical Exam Vital Signs: Vital Signs: Last Vital Signs Temp 98.1 F 02/02/21 16:54 Pulse 94 02/02/21 16:54 Resp 17 02/02/21 16:54 BP 145/93 H 02/02/21 16:54 Pulse Ox 100 02/02/21 16:54 Body Mass Index 28.4 GENERAL APPEARANCE: in no acute distress, pleasant. NECK: no carotid bruit, + jugular venous distention. SKIN: no suspicious lesions, warm and dry. HEART: no murmurs, irregular rate and rhythm. LUNGS: Bilateral wheezes.. ABDOMEN: soft, nontender. EXTREMITIES: +edema. Extremities are cold to touch. PERIPHERAL PULSES: equal. NEUROLOGIC: No gross deficits, AAO X 3 Results Labs and Meds Result diagrams: 02/02/21 03:23 02/02/21 03:23 Lab results: Laboratory Results - last 24 hr 02/02/21 02/02/21 02/02/21 03:23 03:23 03:23 WBC 14.7 H RBC 5.78 Hgb 18.1 H Hct 50.7 MCV 87.7 MCH 31.3 MCHC 35.7 RDW 12.2 Plt Count 249 MPV 10.2 Immature Gran % (Auto) 0.5 H Neut % (Auto) 62.3 Lymph % (Auto) 20.5 [place] % (Auto) 8.4 Eos % (Auto) 7.3 H Baso % (Auto) 1.0 Lymph # (Auto) 3.0 [place] # (Auto) 1.2 Eos # (Auto) 1.1 H Baso # (Auto) 0.2 Abs Immat Gran (auto) 0.07 H Absolute Neuts (auto) 9.2 H Absolute Nucleated RBC 0.000 Nucleated RBC % (auto) 0.0 PT 12.1 INR 1.1 PTT (Heparin Protocol) O2 Saturation ABG pH at Pt Temp ABG pCO2 at Pt Temp ABG pO2 at Pt Temp ABG HCO3 ABG Base Excess (Actual) VBG pH VBG pCO2 VBG pO2 VBG HCO3 VBG O2 Saturation VBG Base Excess Sodium 130 L Potassium 4.2 Chloride 92 L Carbon Dioxide 24 Anion Gap 18 BUN 7 L Creatinine 0.98 Estim Creat Clear Calc 67.2 Estimated GFR > 60 Random Glucose 198 H Lactic Acid Lactic Acid Fup @ 2Hr Lactic Acid Fup @ 4Hr Calcium 10.0 Magnesium 1.7 Total Bilirubin 2.2 H AST 37 ALT 27 Alkaline Phosphatase 91 Troponin I High Sens B-Natriuretic Peptide Total Protein 8.1 H Albumin 4.8 COVID-19 (AUTUMN) COVID-19 Clin Com 02/02/21 02/02/21 02/02/21 03:23 03:23 03:25 WBC RBC Hgb Hct MCV MCH MCHC RDW Plt Count MPV Immature Gran % (Auto) Neut % (Auto) Lymph % (Auto) [place] % (Auto) Eos % (Auto) Baso % (Auto) Lymph # (Auto) [place] # (Auto) Eos # (Auto) Baso # (Auto) Abs Immat Gran (auto) Absolute Neuts (auto) Absolute Nucleated RBC Nucleated RBC % (auto) PT INR PTT (Heparin Protocol) O2 Saturation ABG pH at Pt Temp ABG pCO2 at Pt Temp ABG pO2 at Pt Temp ABG HCO3 ABG Base Excess (Actual) VBG pH VBG pCO2 VBG pO2 VBG HCO3 VBG O2 Saturation VBG Base Excess Sodium Potassium Chloride Carbon Dioxide Anion Gap BUN Creatinine Estim Creat Clear Calc Estimated GFR Random Glucose Lactic Acid 3.3 H* Lactic Acid Fup @ 2Hr Lactic Acid Fup @ 4Hr Calcium Magnesium Total Bilirubin AST ALT Alkaline Phosphatase Troponin I High Sens 116.8 H* B-Natriuretic Peptide 499 H Total Protein Albumin COVID-19 (AUTUMN) Negative COVID-19 Clin Com See Note 02/02/21 02/02/21 02/02/21 03:32 05:43 06:23 WBC RBC Hgb Hct MCV MCH MCHC RDW Plt Count MPV Immature Gran % (Auto) Neut % (Auto) Lymph % (Auto) [place] % (Auto) Eos % (Auto) Baso % (Auto) Lymph # (Auto) [place] # (Auto) Eos # (Auto) Baso # (Auto) Abs Immat Gran (auto) Absolute Neuts (auto) Absolute Nucleated RBC Nucleated RBC % (auto) PT INR PTT (Heparin Protocol) O2 Saturation ABG pH at Pt Temp ABG pCO2 at Pt Temp ABG pO2 at Pt Temp ABG HCO3 ABG Base Excess (Actual) VBG pH 7.25 L VBG pCO2 58 VBG pO2 66 VBG HCO3 25 VBG O2 Saturation 86.0 VBG Base Excess -3.0 Sodium Potassium Chloride Carbon Dioxide Anion Gap BUN Creatinine Estim Creat Clear Calc Estimated GFR Random Glucose Lactic Acid Lactic Acid Fup @ 2Hr 3.5 H* Lactic Acid Fup @ 4Hr Calcium Magnesium Total Bilirubin AST ALT Alkaline Phosphatase Troponin I High Sens 1379.6 H* D B-Natriuretic Peptide Total Protein Albumin COVID-19 (AUTUMN) COVID-19 [facility] 02/02/21 02/02/21 02/02/21 06:44 08:08 13:41 WBC RBC Hgb Hct MCV MCH MCHC RDW Plt Count MPV Immature Gran % (Auto) Neut % (Auto) Lymph % (Auto) [place] % (Auto) Eos % (Auto) Baso % (Auto) Lymph # (Auto) [place] # (Auto) Eos # (Auto) Baso # (Auto) Abs Immat Gran (auto) Absolute Neuts (auto) Absolute Nucleated RBC Nucleated RBC % (auto) PT 14.9 H D INR 1.3 H PTT (Heparin Protocol) 26.3 L O2 Saturation 100.0 ABG pH at Pt Temp 7.34 L ABG pCO2 at Pt Temp 37 ABG pO2 at Pt Temp 185 H ABG HCO3 20 L ABG Base Excess (Actual) -4.1 VBG pH VBG pCO2 VBG pO2 VBG HCO3 VBG O2 Saturation VBG Base Excess Sodium Potassium Chloride Carbon Dioxide Anion Gap BUN Creatinine Estim Creat Clear Calc Estimated GFR Random Glucose Lactic Acid Lactic Acid Fup @ 2Hr Lactic Acid Fup @ 4Hr 2.2 H* Calcium Magnesium Total Bilirubin AST ALT Alkaline Phosphatase Troponin I High Sens B-Natriuretic Peptide Total Protein Albumin COVID-19 (AUTUMN) COVID-19 [facility] Radiologist's impression: Impressions Chest X-Ray 02/02/21 03:14 IMPRESSION: No acute cardiopulmonary findings. Assessment and Plan (1) CHF exacerbation: Status: Acute (2) Atrial fibrillation with RVR: Status: Acute (3) NSTEMI (non-ST elevated myocardial infarction): Status: Acute Pleasant 75 gentleman here for shortness of breath and orthopnea and clinical heart failure. Clinically volume overloaded. Please give him IV diuretics and keep him negative approximately 1500 mL in 24 hours. Hold beta-mickey for now. He should not get any metoprolol or Cardizem for the atrial fibrillation. If he is tachycardic please get in touch with me. I would consider digoxin in that situation. He has not responded well to IV metoprolol already and after getting metoprolol had hypotension. His echocardiography showing reduced ejection fraction and we will review that in more detail. He has ruled in for NSTEMI at this stage. Heparin drip should be continued and he should stay on baby aspirin for now. His EKG showing lateral T-wave inversions which are new. As he improves I think he will need to be transferred for cardiac catheterization. He will need long-term anticoagulation for atrial fibrillation. I have discussed this with him and he is a little reluctant because he had bad experience in his friends. We will readdress this but currently he is on heparin drip and is being treated for NSTEMI which will cover for antic oagulation for now. Thank you for allowing me to participate in the care of your patient. Please fe el free to contact me if you have any questions. Procedures Date of Service Date of Service: 02/02/21
[2021-02-02] MEDS: Furosemide 40 MG/4 ML VIAL IVPUSH (17:38)
--- NOTE | 2021-02-02 18:19 | PC.NURSE ---
pt arrived to unit via stretcher , heparin drip verified with ITALIAN LECTURERTAMMIE pearson , ptt orderedfor [id number]
[2021-02-02] MEDS: Atorvastatin Calcium 80 MG TABLET PO (20:17)
[2021-02-02] MEDS: Aspirin Enteric Coated 81 MG TABLET.DR PO (20:54)
[2021-02-02 22:14] LABS: PTT Heparin Drip > 200.0 SEC (53-77.9)
[2021-02-02 23:55] LABS: PTT Heparin Drip 157.1 SEC (53-77.9)
[2021-02-03] VITALS: BP 124/71; PULSE 103; RESP 16; TEMP 36.2; O2SAT 99
[2021-02-03 00:43] LABS: PTT Heparin Drip > 200.0 SEC (53-77.9)
[2021-02-03 04:00] VITALS: BP 140/82; PULSE 72; RESP 18; TEMP 36.7; O2SAT 98
[2021-02-03 06:46] LABS: Hematocrit 44.4 % (42-52); Hemoglobin 15.5 g/dl (14.0-18.0); Mean Corpuscular HGB Conc 34.9 g/dl (31.0-36.0); Mean Corpuscular Hemoglobin 30.6 pg (27.0-33.0); Mean Corpuscular Volume 87.6 fL (80-98); Mean Platelet Volume 10.7 fL (9.4-12.4); Platelet Count 209 X10*3/uL (160-400); Red Blood Count 5.07 X10*6/uL (4.60-5.80); Red Cell Distribution Width 12.6 % (11.0-16.0); White Blood Count 15.6 X10*3/uL (4.8-10.8)
[2021-02-03 06:56] LABS: INTERNATIONAL NORM RATIO 1.2 (0.9-1.1); Prothrombin Time 13.7 SEC (9.9-13.0)
[2021-02-03 07:09] LABS: Anion Gap 15 (12-20); Blood Urea Nitrogen 18 mg/dL (9-16); Calcium 9.1 mg/dL (8.4-10.2); Carbon Dioxide 25 mmol/L (22-29); Chloride 95 mmol/L (96-108); Creatinine Clr Calc Pharmacy 75.7; Estimated Glomerular Filt Rate > 60; Glucose Random 102 mg/dL (60-115); Potassium 4.2 mmol/L (3.3-5.1); Sodium 131 mmol/L (135-145)
[2021-02-03 07:42] LABS: PTT Heparin Drip 91.3 SEC (53-77.9)
[2021-02-03 08:00] VITALS: BP 145/79; PULSE 70; RESP 25; TEMP 36.4; O2SAT 97
[2021-02-03] MEDS: Ascorbic Acid 500 MG TABLET PO (09:58)
[2021-02-03] MEDS: Furosemide 40 MG/4 ML VIAL IVPUSH (09:58)
--- NOTE | 2021-02-03 11:36 | P.DS_ITS ---
DS: Providers Provider Date of Service: 02/03/21 Date of admission: 02/02/21 11:12 Date of discharge: 02/03/21 Primary care physician: Unknown Physician Consults: 02/02/21 11:21 Consult to Cardiology Routine Consulting Provider: [facility] Cardiovascular Services Reason for consultation: chf, a. fib, elevated trop 02/02/21 13:02 Consult to Cardiology Routine Consulting Provider: Mert Sam Reason for consultation: Elevated trops, respiratory failure CHF Has provider been notified: No Attending physician on discharge: Vinny Perez Discharging clinician: Vinny Perez DS: Transfer Hospital Acceptance Reason for Transfer: Higher level of care -- likely needs cardiac cath DS: Diagnosis Discharge Diagnosis (1) Acute HFrEF (heart failure with reduced ejection fraction): Status: Acute (2) NSTEMI (non-ST elevated myocardial infarction): Status: Acute (3) Atrial fibrillation with RVR: Status: Acute (4) Acute respiratory failure with hypoxia: Status: Acute DS: Summary Hospital Course Hospital Course: HPI: This is a 75 year male presented to the emergency department complaints of shortness of breath.? Past week he is complaints orthopnea and dyspnea on exertion.? For the past several days he has been having difficulty sleeping.? He has an associated dry cough.? He denies any associated fever chills or recent contacts.? He presented to the emergency department with increasing shortness of breath and feeling that he could not breathe.? Workup was significant for troponin of 116 BNP of 499. Patient was also noted to be in atrial fibrillation with rapid ventricular response.? He received a dose of IV Lopressor.? Subsequently patient's respiratory failure became worse and he was placed on BiPAP.? He received IV ceftriaxone, Xopenex.? Heart rate was also noted to decrease into the 70s.? Repeat troponin increased to 1379. Patient denies chest pain or palpitations.? He was evaluated by the neonatal pediatric nurse but at that point his blood pressure was beginning to improve and he was not deemed to be a candidate for ICU level of care.? Patient was able to be weaned off of BiPAP, blood press ure currently stable and therefore will be admitted to the medical floor for further management. Hospital Course: Patient was started on IV heparin drip as well as IV Lasix for the treatment of NSTEMI and acute CHF. After initial hypotension with IV beta-blockers to control his rapid AFib his heart did improve but cardiology recommended against current calcium channel blockers or beta-blockers. Fortunately he did not require any further treatment for his AFib. 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 Dr. Sam from Cardiology will be transferring the patient to [facility] for further care. He will be transferred on IV heparin drip as well as IV Lasix for he is color currently tolerating 2 L. In regards to the patient's AFib, this is a chronic diagnosis for him however he has refused to be on anticoagulation and is only on baby aspirin. This should be further discussed with him [place] [facility] Time Spent with Patient Time attestation: Total time spent providing and/or coordinating discharge services: Discharge coordination time: Greater than 30 minutes Quality: Stroke Does the patient have a stroke diagnosis?: No Physical Exam Vital Signs: Vital Signs: Last Vital Signs Temp 97.5 F 02/03/21 08:00 Pulse 70 02/03/21 08:00 Resp 25 H 02/03/21 08:00 BP 145/79 H 02/03/21 08:00 Pulse Ox 97 02/03/21 08:00 Body Mass Index 28.4 Const: Other: General - no acute distress, appears comfortable Cardiovascular - regular rate and rhythm, S1-S2 Lungs - normal respiratory effort, clear to auscultation bilaterally, no wheezing Abdomen - soft, nontender, no rebound or guarding Extremities - no edema bilaterally Neuro - awake and alert, no focal deficits DS: Data Data Completed and Pending Labs on day of discharge: Laboratory Results - last 24 hr 02/02/21 02/02/21 02/02/21 13:41 21:08 23:14 WBC RBC Hgb Hct MCV MCH MCHC RDW Plt Count MPV Absolute Nucleated RBC Nucleated RBC % (auto) PT 14.9 H D INR 1.3 H PTT (Heparin Protocol) 26.3 L > 200.0 H* D 157.1 H* D Sodium Potassium Chloride Carbon Dioxide Anion Gap BUN Creatinine Estim Creat Clear Calc Estimated GFR Random Glucose Calcium 02/03/21 02/03/21 02/03/21 00:15 01:14 06:35 WBC 15.6 H RBC 5.07 Hgb 15.5 Hct 44.4 MCV 87.6 MCH 30.6 MCHC 34.9 RDW 12.6 Plt Count 209 MPV 10.7 Absolute Nucleated RBC 0.000 Nucleated RBC % (auto) 0.0 PT INR PTT (Heparin Protocol) > 200.0 H* D 62.0 D Sodium Potassium Chloride Carbon Dioxide Anion Gap BUN Creatinine Estim Creat Clear Calc Estimated GFR Random Glucose Calcium 02/03/21 02/03/21 02/03/21 06:35 06:36 07:23 WBC RBC Hgb Hct MCV MCH MCHC RDW Plt Count MPV Absolute Nucleated RBC Nucleated RBC % (auto) PT 13.7 H INR 1.2 H PTT (Heparin Protocol) 91.3 H D Sodium 131 L Potassium 4.2 Chloride 95 L Carbon Dioxide 25 Anion Gap 15 BUN 18 H D Creatinine 0.95 Estim Creat Clear Calc 75.7 Estimated GFR > 60 Random Glucose 102 D Calcium 9.1 D Preliminary micro results at discharge 02/02/21 03:31 Blood Culture - Preliminary Blood - Venous No growth after 24 hours. 02/02/21 03:23 Blood Culture - Preliminary Blood - Venous No growth after 24 hours. Discharge Plan Discharge Patient Disposition: [facility] Discharge Diagnosis: NSTEMI Referrals: Physician,Unknown [Primary Care Provider] - 1 Week Discharge Medications: New furosemide 10 mg/mL Solution 40 mg IVPUSH BID@0900,1800 Qty: 100 RF: 0 heparin(porcine) in 0.45% NaCl 25,000 unit/250 mL Parenteral Solution 25,000 unit continuous IV infusion .Q0M Qty: 6000 RF: 0 Continued lisinopril 30 mg tablet 30 mg PO DAILY@2200 RF: 0 multivitamin Tablet 1 tab PO DAILY@1000 RF: 0 atorvastatin 80 mg tablet 80 mg PO DAILY@2200 RF: 0 aspirin 81 mg Tablet,Delayed Release (Dr/Ec) 81 mg PO DAILY@2200 RF: 0 ascorbic acid (vitamin C) [Vitamin C] 500 mg Tablet 500 mg PO DAILY@1000 RF: 0 albuterol sulfate 90 mcg/actuation HFA aerosol inhaler 2 puff PO QID PRN (Reason: wheezing) RF: 0 Discontinued carvedilol 12.5 mg tablet 12.5 mg PO BID@1000,2200 RF: 0 Discharge Orders: Discharge Order (Routine); Ordered 02/03/21 Ordered By: Vinny Perez Diet: advance to usual diet Activity on Discharge: As tolerated Stand Alone Forms: Patient Portal Discharge page Care Plan Goals: To get treatment for NSTEMI at [facility] Health Concerns: NSTEIM, AFib with RVR, respiratory failure Plan of Treatment: You will be transferred to [facility] for further cardiac care. Assessment: 75-year-old male who presented with respiratory symptoms and was diagnosed with NSTEMI, rapid AFib, impending respiratory failure. Was started on IV heparin and IV diuretics. Will be transferred to [facility] for further workup and treatment.
[2021-02-03 11:40] VITALS: BP 139/88; PULSE 83; RESP 22; TEMP 36.3; O2SAT 100
--- NOTE | 2021-02-03 11:50 | MHC.CM.PN ---
PT WILL DISCHARGE TODAY TO [facility] VIA BLS
--- NOTE | 2021-02-03 13:00 | P.PNCA_ITS ---
Subjective Subjective Date of Service: 02/03/21 Interval history: Breathing is better. Mild wheezes present. Heart rate 90s to 110 in AFib. echocardiography result discussed with the patient. Review of Systems Review of Systems No chest pain. Mild shortness of breath. He has Physical Exam Vital Signs: Last Vital Signs Temp 97.4 F 02/03/21 11:40 Pulse 83 02/03/21 11:40 Resp 22 H 02/03/21 11:40 BP 139/88 02/03/21 11:40 Pulse Ox 100 02/03/21 11:40 Body Mass Index 28.4 GENERAL APPEARANCE: in no acute distress, pleasant. NECK: no carotid bruit, mild JVD. SKIN: no suspicious lesions, warm and dry. HEART: no murmurs, regular rate and rhythm. LUNGS: Mild end expiratory wheezes. ABDOMEN: soft, nontender. EXTREMITIES: Cold. He has known peripheral vascular disease. NEUROLOGIC: No gross deficits, AAO X 3 Results Labs and Meds Result diagrams: 02/03/21 06:35 02/03/21 06:36 Lab results: Laboratory Results - last 24 hr 02/02/21 02/02/21 02/02/21 13:41 21:08 23:14 WBC RBC Hgb Hct MCV MCH MCHC RDW Plt Count MPV Absolute Nucleated RBC Nucleated RBC % (auto) PT 14.9 H D INR 1.3 H PTT (Heparin Protocol) 26.3 L > 200.0 H* D 157.1 H* D Sodium Potassium Chloride Carbon Dioxide Anion Gap BUN Creatinine Estim Creat Clear Calc Estimated GFR Random Glucose Calcium 02/03/21 02/03/21 02/03/21 00:15 01:14 06:35 WBC 15.6 H RBC 5.07 Hgb 15.5 Hct 44.4 MCV 87.6 MCH 30.6 MCHC 34.9 RDW 12.6 Plt Count 209 MPV 10.7 Absolute Nucleated RBC 0.000 Nucleated RBC % (auto) 0.0 PT INR PTT (Heparin Protocol) > 200.0 H* D 62.0 D Sodium Potassium Chloride Carbon Dioxide Anion Gap BUN Creatinine Estim Creat Clear Calc Estimated GFR Random Glucose Calcium 02/03/21 02/03/21 02/03/21 06:35 06:36 07:23 WBC RBC Hgb Hct MCV MCH MCHC RDW Plt Count MPV Absolute Nucleated RBC Nucleated RBC % (auto) PT 13.7 H INR 1.2 H PTT (Heparin Protocol) 91.3 H D Sodium 131 L Potassium 4.2 Chloride 95 L Carbon Dioxide 25 Anion Gap 15 BUN 18 H D Creatinine 0.95 Estim Creat Clear Calc 75.7 Estimated GFR > 60 Random Glucose 102 D Calcium 9.1 D Progress Note: A&P Assessment and plan (1) Acute HFrEF (heart failure with reduced ejection fraction): Status: Acute (2) NSTEMI (non-ST elevated myocardial infarction): Status: Acute (3) Atrial fibrillation with RVR: Status: Acute Assessment and Plan: Pleasant 75 gentleman who is presenting for acute congestive heart failure. He also ruled in for NSTEMI. He has known coronary artery disease with previous circumflex artery stent. 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 He has been diuresed with IV diuretics. He is on Lasix. I think we should avoid beta-blockers and calcium channel blockers in him. If AFib is fast and I would start digoxin on him. I think we resume lisinopril at 20 mg once a day. I have discussed with him about cardiac catheterization and is agreeable. We will transfer to [facility] with potential plan to do diagnostic angiogram tomorrow. He has atrial fibrillation and high chads Vasc score. I have discussed with him about starting anticoagulation and he is agreeable. He is saying that previously he tried to get Eliquis/Xarelto but they were too expensive for him. We will try again and if not possible then will change him to Coumadin and refer him to [facility]. Thank you for allowing me to participate in the care of your patient. Please feel free to contact me if you have any questions. Fall Risk Details Current Medications: Current Medications Generic Name Dose Route Start Last Admin Trade Name Freq PRN Reason Stop Dose Admin Acetaminophen 650 mg 02/02/21 13:02 Acetaminophen 325 Mg Tablet PO Q6H PRN Pain, Mild (Pain Scale 1-3) Albuterol Sulfate 2 puff 02/02/21 13:02 Albuterol Sulfate 90 Mcg 8 Gm Inhaler INHALE QID PRN wheezing Ascorbic Acid 500 mg 02/03/21 10:00 02/03/21 09:58 Ascorbic Acid 500 Mg Tablet PO 500 mg DAILY@1000 [facility] Administration Aspirin 81 mg 02/02/21 22:00 02/02/21 20:54 Aspirin Enteric Coated 81 Mg Tablet. PO 81 mg DAILY@2200 [facility] Administration Atorvastatin Calcium 80 mg 02/02/21 22:00 02/02/21 20:17 Atorvastatin Calcium 80 Mg Tablet PO 80 mg DAILY@2200 [facility] Administration Docusate Sodium 100 mg 02/02/21 13:02 Docusate Sodium 100 Mg Capsule PO DAILY PRN Constipation Furosemide 40 mg 02/02/21 18:00 02/03/21 09:58 Furosemide 40 Mg/4 Ml Vial IVPUSH 40 mg BID@0900,1800 [facility] Administration Protocol Heparin Sodium (Porcine) 3,500 unit 02/02/21 13:16 Heparin Sodium,Porcine 5,000 Unit/Ml Vial 40 unit/kg (3500 unit) IVPUSH PROTOCOL BOLUS PRN 40 unit/kg - Heparin Protocol Protocol Heparin Sodium (Porcine) 6,900 unit 02/02/21 13:16 Heparin Sodium,Porcine 5,000 Unit/Ml Vial 80 unit/kg (6900 unit) IVPUSH PROTOCOL BOLUS PRN 80 unit/kg - Heparin Protocol Protocol Heparin Sodium/Sodium Chloride 25,000 unit in 250 mls @ 0 mls/hr 02/02/21 13:30 02/03/21 08:32 IVCONT 5.23 units/kg/hr .Q0M [facility] 4.53 mls/hr Titration Protocol Per Protocol Ondansetron HCl 4 mg 02/02/21 13:02 Ondansetron Hcl 4 Mg/2 Ml Vial IVPUSH Q8H PRN Nausea and Vomiting Pharmacy Consult 1 each 02/02/21 08:38 Consult Rx Perform Med Rec MISCELLANE ONCE PRN Consult order Sodium Chloride 3 ml 02/02/21 16:00 02/03/21 08:35 0.9 % Sodium Chloride Flush 3 Ml Syringe IVFLUSH Not Given QSHIFT [facility] Time Spent With Patient Time: Total time spent is greater than 50% in coordination of care (as documented) at patient's floor/unit and/or counseling patient: Time with patient: 25 - 35 minutes Progress Note: Quality Stroke Does the patient have a stroke diagnosis?: No Procedures Date of Service Date of Service: 02/03/21
--- NOTE | 2021-02-03 14:48 | PC.NURSE ---
report given to [facility] nurse, also report given to transport. Called to discuss her husbands transfer and educated the patient about why he was being transferred. All stated understanding.
== END 2021-02-03 14:49 | disposition short-term general hospital (02) | DRG 280 ==
LOC: HO.ED 05:44 → HO.EDOVER 11:19 → HO.ISO 15:28
PROVIDERS: Admitting Provider Physician Assistant Medical; Emergency Provider Student in an Organized Health Care Education/Training Program; Visit Provider Physician Assistant Medical
DX: I21.4 Non-ST elevation (NSTEMI) myocardial infarction (principal); I50.21 Acute systolic (congestive) heart failure; J96.01 Acute respiratory failure with hypoxia; E87.2 Acidosis; E87.1 Hypo-osmolality and hyponatremia; I51.81 Takotsubo syndrome; I48.91 Unspecified atrial fibrillation; I25.10 Atherosclerotic heart disease of native coronary artery without angina pectoris; E78.5 Hyperlipidemia, unspecified; D72.829 Elevated white blood cell count, unspecified; I95.9 Hypotension, unspecified; Z20.822 Contact with and (suspected) exposure to COVID-19; Z95.1 Presence of aortocoronary bypass graft; Z88.0 Allergy status to penicillin; Z87.891 Personal history of nicotine dependence; Z79.82 Long term (current) use of aspirin; Z79.899 Other long term (current) drug therapy
CPT/HCPCS: 36415; 71045; 80048; 80053; 82803; 83605; 83735; 83880; 84484; 85025; 85027; 85610; 85730; 87040; 87635; 93005; 93306; 94640; 94660; 99285; J0696; J1940; Q9957

== ENCOUNTER → 2021-03-23 13:00 | Outpatient (BNVA) | payer MEDICARE, SELFPAY | PROVIDERS: Referring Provider Internal Medicine; Visit Provider Internal Medicine Cardiovascular Disease | DX: I48.91 Unspecified atrial fibrillation (principal); I25.5 Ischemic cardiomyopathy; Z95.1 Presence of aortocoronary bypass graft | CPT/HCPCS: 99212 ==

== ENCOUNTER → 2021-06-03 12:31 | Outpatient (REF) | payer MEDICARE, SELFPAY ==
--- NOTE | 2021-06-03 12:39 | CA_ITS ---
Transthoracic Echocardiogram Patient (Last, First, Middle): Kevin Monaco, Gender: Male Date of : 1945 Age: 76 Procedure Date: 06/03/2021 Procedure Type: Transthoracic Echocardiogram Location: OP Height: 172.72 cm Weight: 83.92 kg BSA: 1.98 m2 Heart Rate: bpm BP: 162 / 90 mmHg School Psychologist: STU Referring MD: Mert Sam MD Symptoms: I25.5 - Ischemic cardiomyopathy Study Quality: Technically Difficult/contrast Conclusions: - Normal left ventricular size, thickness, and systolic function. - Spectral Doppler is indicative of a restrictive filling pattern. Elevated filling pressures. - Normal right ventricular cavity size. There is mildly decreased right ventricular systolic function. - There is mild dilatation of the ascending aorta and mild dilatation of the aortic arch. Findings Procedure Information Contrast agent, definity, is being given per protocol without apparent complications. Left Ventricle Normal left ventricular size, thickness, and systolic function. The visually estimated ejection fraction is between 60-65%. There is no evidence of regional wall motion abnormalities. Abnormal diastolic function is noted. Spectral Doppler is indicative of a restrictive filling pattern. Elevated filling pressures. Right Ventricle Normal right ventricular cavity size. There is mildly decreased right ventricular systolic function. Atria The left atrium is mildly dilated. The right atrium is mildly dilated. Aortic Valve The aortic valve structure and function is likely normal. There is no aortic valve stenosis. There is no aortic valve regurgitation. Mitral Valve There is moderate mitral annular calcification. There is no mitral valve regurgitation. There is no mitral valve stenosis. Pulmonic Valve The pulmonic valve was not well visualized. Tricuspid Valve Normal tricuspid valve structure and function. There is trace tricuspid valve regurgitation. Tricuspid regurgitation envelope is inadequate for calculation of right ventricular systolic pressure. Normal right atrial pressure. Great Vessels The pulmonary artery was not well visualized. There is mild dilatation of the ascending aorta and mild dilatation of the aortic arch. Venous The inferior vena cava is normal in size and collapses greater than 50% with inspiration. Pericardium/Pleural There is no evidence of pericardial effusion. Prior Study Comparison Changes noted compared to prior study dated: 02/02/2021. EF has normalized. Measurements 2D Linear Measurements IVSd: 1.07 0.6-0.9/0.6-1.0 cm LVIDd: 5.09 3.9-5.3/4.2-5.9 cm LVIDd Index: 2.57 2.4-3.2/2.2-3.1 cm/m2 LVIDs: 4.31 2.0-3.6 cm LVPWd: 1.05 0.7-1.1 cm Ao Root: 3.70 2.1-3.5 cm LA Diam: 4.10 2.7-3.8/3.0-4.0 cm LAIDs Index: 2.07 1.5-2.3 cm/m2 LV Mass: 252.65 67-162/88-224 g LV Mass Index: 127.60 43-95/49-115 g/m2 LVOT Diam: 2.10 3.0+(-)1.3 cm 2D Systolic Function EF 4C: 62.00 >55% EF 2C: 59.90 >55% EF BiP: 61.40 >55% Mitral Valve MV Pk E: 0.97 MV PK A: 0.38 MV Decel Time: 166.00 E/A: 2.60 E'Lateral: 7.62 E'Medial: 4.46 E/E' Med: 21.70 E/E' Lat: 12.70 PHT: 49.00 MVA PHT: 4.49 Decel Starke: 5.83 Aortic Valve AoV Pk Ari: 1.08 AoV Mn Ari: 0.81 AoV VTI: 0.24 AoV Pk Grad: 5.00 Aov Mn Grad: 3.00 ZOHRA Cont.VTI: 2.18 LVOT LVOT Pk Ari: 0.71 LVOT Mn Ari: 0.52 LVOT VTI: 0.15 LVOT Pk Grad: 2.00 LVOT Mn Grad: 1.00 LVOT Diam: 2.10 LVOT Area: 3.46 Diastolic Function MV Pk E: 0.97 MV Pk A: 0.38 E/A: 2.60 E'Medial: 4.46 E/E' Med: 21.70 E' Laterial: 7.62 E/E' Lat: 12.70 Right Ventricle TAPSE (mm): 13.70 TVS' Ari: 8.16 Tricuspid Valve RA Press: 3.00 Great Vessels Aorta Ao Root-2D: 3.70 2.0-3.7 cm Ao Asc: 3.50 2.1-3.4 cm Ao Arch: 4.10 Updated in Other Vendor System with Status of Final Mert Sam MD electronically signed on 06/05/2021 9:06:54 PM with status of Final
== END ==
LOC: HO.CARD 12:31
PROVIDERS: PCP Internal Medicine; Visit Provider Internal Medicine Cardiovascular Disease
DX: I25.5 Ischemic cardiomyopathy (principal)
CPT/HCPCS: 93306; Q9957

== ENCOUNTER → 2021-07-04 12:34 | Outpatient (BNVA) | payer MEDICARE, SELFPAY | PROVIDERS: PCP Internal Medicine; Referring Provider Internal Medicine; Visit Provider Internal Medicine Cardiovascular Disease | DX: R06.00 Dyspnea, unspecified (principal) | CPT/HCPCS: Q3014 ==

== ENCOUNTER → 2021-07-08 13:17 | Outpatient (BNVA) | payer MEDICARE, SELFPAY | PROVIDERS: PCP Internal Medicine; Referring Provider Internal Medicine; Visit Provider Nurse Practitioner Family | DX: R06.00 Dyspnea, unspecified (principal); I25.10 Atherosclerotic heart disease of native coronary artery without angina pectoris; I48.91 Unspecified atrial fibrillation; Z95.1 Presence of aortocoronary bypass graft | CPT/HCPCS: 99212 ==

== ENCOUNTER → 2021-07-21 14:38 | Outpatient (BNVA) | payer MEDICARE, SELFPAY | PROVIDERS: PCP Internal Medicine; Visit Provider Internal Medicine | DX: J44.9 Chronic obstructive pulmonary disease, unspecified (principal); R06.00 Dyspnea, unspecified | CPT/HCPCS: 99202 ==

== ENCOUNTER 2021-08-03 10:35 | Outpatient (REF) | payer MEDICARE, SELFPAY ==
--- NOTE | 2021-08-03 11:30 | PFT_ITS ---
INDICATION: COPD. SPIROMETRY: FEV1 to FVC of 58% with an FEV1 of 1.41 L which is 50% predicted, FVC of 2.43 L which is 60% predicted. No significant response to bronchodilators noted. Maximum voluntary ventilation 38% predicted. LUNG VOLUMES: Total lung capacity 112% predicted with a residual volume of 204% predicted and an expiratory reserve volume of 52% predicted. DIFFUSION CAPACITY: DLCO 44% predicted. COMPARISONS: None. 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 No significant response to bronchodilators noted, severe decrease in maximum voluntary ventilation secondary to deconditioning and also worsening dynamic inspiratory capacity. Lung volumes with a trend of hyperinflation and significant air trapping due to the COPD. In addition to that, there is a severe diffusion impairment secondary to likely emphysema and other parenchymal lung conditions should be considered. Clinical correlation warranted. Robbin Perez MD MR/MODL / [id number]
== END 2021-08-03 10:36 | disposition home or self-care (01) ==
LOC: HO.RESP 10:35
PROVIDERS: PCP Internal Medicine; Visit Provider Physician Assistant Medical
DX: R06.02 Shortness of breath (principal)
CPT/HCPCS: 94060; 94727; 94729

== ENCOUNTER → 2021-08-18 13:15 | Outpatient (BNVA) | payer MEDICARE, SELFPAY | PROVIDERS: PCP Internal Medicine; Visit Provider Internal Medicine | DX: Z13.89 Encounter for screening for other disorder (principal) | CPT/HCPCS: Q3014 ==